=== PATIENT | male | born 1975 | race Caucasian/White ===

== ENCOUNTER 2021-05-29 02:07 | Day surgery (SDC) | payer OTHER, SELFPAY ==
[2021-05-16 13:22] VITALS: BMI 25.9
[2021-05-29 08:41] VITALS: BP 121/62; PULSE 63; RESP 18; TEMP 36.5; O2SAT 98; BMI 25.7
[2021-05-29] MEDS: LACTATED RINGERS 1,000 ML 150 ML IV CONT (08:46)
--- NOTE | 2021-05-29 09:05 | WPDANESEPPF ---
Anes - Initial Pre Proc Eval Procedure: Operation Date: 05/29/21 09:45 Proposed Procedures p Colonoscopy - Wilder Parker MD Date/Time: 05/29/21 09:05 Surgeon: Wilder Parker MD Pre Op Diagnosis: constipation Patient Data Age: 45 Gender: M Height: 1.75 m Weight: 78.9 kg Last Vital Signs Temp 97.7 F 05/29/21 08:41 Pulse 63 05/29/21 08:41 Resp 18 05/29/21 08:41 BP 121/62 05/29/21 08:41 Pulse Ox 98 05/29/21 08:41 Allergies Allergy/AdvReac Type Severity Reaction Status Date / Time penicillin G Allergy Unknown Unknown Verified 05/29/21 08:40 cariprazine AdvReac Severe Dizziness Verified 05/29/21 08:40 hydroxyzine AdvReac Severe Confusion Verified 05/29/21 08:40 tamsulosin AdvReac Severe Hypotension Verified 05/29/21 08:40 Home Medications Medication Instructions Recorded Confirmed Type albuterol sulfate 90 mcg/actuation 1 puff INHALATION Q4H PRN 04/29/21 05/16/21 History aerosol inhaler atorvastatin 10 mg tablet 10 mg PO DAILY 04/29/21 05/16/21 History budesonide-formoterol HFA 160 2 puff INHALATION Q12H 04/29/21 05/16/21 History mcg-4.5 mcg/actuation aerosol inhaler cetirizine 10 mg tablet 10 mg PO DAILY PRN 04/29/21 05/16/21 History clonazepam 1 mg tablet 1 mg PO TID PRN 04/29/21 05/16/21 History disulfiram 250 mg tablet 250 mg PO DAILY 04/29/21 05/16/21 History fluticasone propionate 50 2 spray INTRANASAL DAILY 04/29/21 05/16/21 History mcg/actuation nasal spray,suspension ipratropium bromide 17 2 puff INHALATION TID 04/29/21 05/16/21 History mcg/actuation HFA aerosol inhaler lamotrigine 150 mg tablet 150 mg PO BID 04/29/21 05/16/21 History montelukast 10 mg tablet 10 mg PO DAILY 04/29/21 05/16/21 History omeprazole 40 mg capsule,delayed 40 mg PO BID 30 Days #60 cap 04/29/21 05/16/21 Rx release ondansetron HCl 4 mg tablet 4 mg PO Q8H 04/29/21 05/16/21 History prazosin 5 mg capsule 6 mg PO QPM 04/29/21 05/16/21 History sildenafil 100 mg tablet 100 mg PO DAILY PRN 04/29/21 05/16/21 History lactulose 10 gram/15 mL oral 10 g PO BID PRN #473 ml 05/10/21 05/16/21 Rx solution gabapentin 400 mg PO TID 05/16/21 05/16/21 History Patient hx anesthesia problems: none Family hx anesthesia problems: none Results Review: All pre-operative results and documents have been reviewed as part of the pre-operative evaluation. [facility] Past Medical History Medical History (Updated 04/29/21 @ 09:51 by KERI Mcconnell) Constipation Depression Diabetes Hypertension Overweight (BMI 25.0-29.9) Stroke Thyroid cancer Social History Social History (Updated 04/29/21 @ 09:26 by Krishna Valladares MA) Social History: Stopped smoking a few weeks ago Smoking status: Former smoker Tobacco type: cigarettes Second hand tobacco smoke exposure: No Smoking end date: 04/08/21 Alcohol intake: former Alcohol use details: 4 months sober Substance use: never Substance use type: does not use Living arrangements: with family Additional occupation/education comments: Sales Gender identity (if verbalized by the patient): Male Spiritual care concerns: No Agree to blood products: Yes Anes - Eval Final PreProcedure Day of Procedure 05/29/21 09:05 Patient weight: overweight Heart: regular rate and rhythm Lungs: clear to auscultation Airway: Mallampati scale class II Neurological: alert and oriented Last oral intake: >/= 8 hours ASA classification: III Emergent: no Anesthetic plan: proceed Anesthesia type and monitoring: general GIVS and standard monitoring Results Review: All pre-operative results and documents have been reviewed as part of the pre-operative evaluation. Informed Consent: The patient's anesthetic plan and its attendant risks and benefits were discussed with the patient/family/POA. Questions were solicited and answers provided to the satisfaction of the patient/family/POA.
--- NOTE | 2021-05-29 09:43 | WPDHPUPDATE1 ---
History and Physical Update Update Date/Time: 05/29/21 09:43 History and Physical has been reviewed, including an updated exam of the patient. There are NO changes in the patient's condition. Risks, benefits, and alternatives have been discussed and questions answered. Patient agrees to proceed with procedure.
[2021-05-29 10:05] VITALS: BP 104/54; PULSE 61; RESP 18; O2SAT 100
[2021-05-29 10:15] VITALS: BP 106/72; PULSE 61; RESP 18; O2SAT 99
== END 2021-05-29 10:27 | disposition home or self-care (01) ==
PROVIDERS: PCP Family Medicine; Visit Provider Internal Medicine Gastroenterology
PROC: 0DJD8ZZ Inspection of Lower Intestinal Tract, Via Natural or Artificial Opening Endoscopic (ICD-10-PCS; CPT 45378; principal; 2021-05-29 09:45)
DX: Z12.11 Encounter for screening for malignant neoplasm of colon (principal); K63.5 Polyp of colon; K64.8 Other hemorrhoids; K57.30 Diverticulosis of large intestine without perforation or abscess without bleeding; I10 Essential (primary) hypertension; E11.9 Type 2 diabetes mellitus without complications; F32.9 Major depressive disorder, single episode, unspecified; Z86.73 Personal history of transient ischemic attack (TIA), and cerebral infarction without residual deficits; Z85.850 Personal history of malignant neoplasm of thyroid; Z87.891 Personal history of nicotine dependence; Z79.51 Long term (current) use of inhaled steroids
CPT/HCPCS: 45385; 88305; J2704; J7120

== ENCOUNTER 2021-12-10 08:54 | Outpatient (CLI) | payer OTHER, SELFPAY ==
--- NOTE | ~2021-12-10 | NM_ITS ---
EXAM: NM gastric emptying study DATE: 12/10/2021 13:33 INDICATION: Abdominal distention (gaseous). TECHNIQUE: A gastric emptying study was performed using the methodology of Peggy AVENDANO, et al. J Nucl Med 2007; 48:568-572. The patient was given a meal consisting of 2 scrambled eggs labeled with 0.972 mCi Tc-99m sulfur colloid, 2 slices of toast, two packages of jam, and approximately 120 mL of water . Simultaneous anterior and posterior 1-min images of the abdomen were obtained with the patient supi ne at multiple time points over a total period of 4 hours. The geometric mean of anterior and posteri or views was determined, and the percentage retention was calculated for each time point. COMPARISON: None. FINDINGS: Gastric retention of the radiotracer-labeled meal was 56%, 16%, and 3% at the 1-hour, 2-ho ur, and 4-hour time points, respectively. With this technique, apparent rapid gastric emptying is sug gested by <30% gastric retention at 1 hour. Delayed gastric emptying is defined by gastric retention of >90% at 1 hour, >60% retention at 2 hours, or >10% retention at 4 hours. IMPRESSION: 1. Normal gastric emptying. Reviewed, dictated and finalized at location A. IMPRESSION: 1. Normal gastric emptying.
== END 2021-12-10 08:55 | disposition home or self-care (01) ==
LOC: ANHIMG 08:57
PROVIDERS: PCP Family Medicine; Visit Provider Nurse Practitioner Family
DX: R14.0 Abdominal distension (gaseous) (principal)
CPT/HCPCS: 78264; A9541

== ENCOUNTER 2025-06-13 15:45 | Outpatient (RCR) | payer MEDICARE, SELFPAY ==
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
--- NOTE | 2025-05-31 15:21 | OPREHPOC ---
Outpatient Therapy Plan of Care This is a Multidisciplinary Plan of Care that may contain components documented by all disciplines (PT, OT, and ST.) PT Problem 1 PT Problem #1 Knowledge Deficit PT Goal 1 Goal / Goal Update Pt will be independent in HEP Pt will verbalize understanding of diagnosis and prognosis Target Visit 5 PT Problem 2 PT Problem #2 Pain PT Goal 1 Goal / Goal Update Pt will report greatest pain level at 3/10 or less to improve ADLs and activities Target Visit 5 PT Goal 2 Goal / Goal Update Pt will report resolution of pain to improve quality of sleep Target Visit 10 PT Problem 3 PT Problem #3 Impaired Endurance PT Goal 1 Goal / Goal Update Pt will demonstrate improved postural endurance of left shoulder blade position without cueing Target Visit 10 PT Problem 4 PT Problem #4 Impaired Range of Motion PT Goal 1 Goal / Goal Update Pt will demonstrate equal ROM lateral flexion and rotation of cervical spine Target Visit 10
--- NOTE | 2025-06-20 16:00 | PCPTNOTE ---
Pt no showed to scheduled physical therapy appointment this date. Called pt to follow up and pt stated that he got his days mixed up.
--- NOTE | 2025-06-22 15:20 | PCPTNOTE ---
Pt no showed to scheduled physical therapy appointment this date. Called pt and left a VM.
--- NOTE | 2025-06-23 15:21 | PCPTNOTE ---
Pt no showed to scheduled physical therapy appointment this date and will be discharged at this time.
--- NOTE | 2025-06-23 15:57 | PTOPDC ---
Assessment and note entered by Renetta Voss, PT Evaluation Information Assessment Status Discharge - Pt Not Present ICD-10 Condition Codes (PT) Cervicalgia M54.2,Pain in Thoracic Spine M54.6, Weakness R53.1 Other ICD-10 Condition Codes ( Abnormal posture PT) Onset Chronic Assessment PT Clinical Summary Pt attended two therapy visits including evaluation, then has had three sessions in which he was a no-call no-show. He was called after each no-show visit and messages left for him to call back to the office in order to confirm his schedule. Pt never returned the phone calls. Pt is thus being discharged for non-attendance. Should patient be able to attend therapy consistently in the future, he can be seen again with an updated prescription for services. Plan of Care PT Services Indicated No
== END 2025-06-26 08:06 | disposition home or self-care (01) ==
LOC: ANHHIPT 15:45
PROVIDERS: PCP Nurse Practitioner Adult Health; Visit Provider Nurse Practitioner Adult Health
DX: M54.6 Pain in thoracic spine (principal)
CPT/HCPCS: 97014; 97110; 97112; 97140; 97162; G0283